=== PATIENT | female | born 1975 | race African-American/Black ===

== ENCOUNTER 2019-03-23 00:28 | Inpatient (IN) | payer MEDICAID ==
[~2019-03-23] VITALS: Ht 162.6 cm; Wt 67.1 kg
[2019-03-23] VITALS (16 sets, daily range): BP systolic 107–122; BP diastolic 60–84
[2019-03-23] MEDS ORDERED: SODIUM CHLORIDE 0.9% 1,000 ML IV ONE (01:24)
[2019-03-23 01:50] LABS: MEAN CORPUSCULAR HEMOGLOBIN 16.9 pg (28.0-32.0); MEAN CORPUSCULAR VOLUME 59.2 fL (81.0-99.0); MEAN PLATELET VOLUME 7.2 fl (7.4-10.4); RED BLOOD CELL COUNT 2.11 mill/uL (4.2-5.4); RED CELL DISTRIBUTION WIDTH 27.6 % (11.6-14.6)
[2019-03-23 01:56] LABS: HEMOGLOBIN. 3.6 g/dL (12.0-16.0)
[2019-03-23 01:57] LABS: HEMATOCRIT. 12.5 % (36.0-48.0); PLATELET 1062 x1000/uL (130-400); PROTHROMBIN TIME 10.7 sec (9.6-11.0)
[2019-03-23 02:00] LABS: CHLORIDE 106 mEq/L (98-107)
[2019-03-23 02:17] LABS: HCG SCREEN NEGATIVE
[2019-03-23 04:28] LABS: PLATELET ESTIMATE MARKEDLY INCREASED
[2019-03-23] MEDS ORDERED: ONDANSETRON HCL 4MG/2ML INJ IV PRN (07:45)
[2019-03-23] MEDS ORDERED: HYDROCODONE/ACETAMINOPHEN 10/325MG TABLET PO PRN (07:45)
[2019-03-23] MEDS ORDERED: LORAZEPAM 2MG/ML CPJ IV PRN (07:45)
[2019-03-23] MEDS ORDERED: THIAMINE HCL 100MG TABLET PO NR (08:00)
[2019-03-23] MEDS ORDERED: ACETAMINOPHEN 650MG/20.3ML UDC PO PRN (12:30)
[2019-03-23] MEDS ORDERED: DIPHENHYDRAMINE 50MG/ML VIAL IV PRN (12:30)
[2019-03-23] MEDS: FERROUS SULFATE 325MG TABLET PO SCH (12:56)
[2019-03-23 18:43] LABS: CLARITY URINE CLEAR (CLEAR); COLOR URINE YELLOW (YELLOW); KETONES URINE NEGATIVE (NEGATIVE); LEUKOCYTE ESTERASE URINE NEGATIVE (NEGATIVE); NITRITE URINE NEGATIVE (NEGATIVE); OCCULT BLOOD URINE 1+ (NEGATIVE); PROTEIN URINE NEGATIVE (NEGATIVE); SPECIFIC GRAVITY URINE 1.007 (1.005-1.030)
[2019-03-23 18:56] LABS: *AMPHETAMINES SCREEN URINE NEGATIVE (NEGATIVE); *BARBITURATES SCREEN URINE NEGATIVE (NEGATIVE); *BENZODIAZEPINES SCREEN URINE NEGATIVE (NEGATIVE)
[2019-03-23 18:57] LABS: *COCAINE SCREEN URINE PRESUMTIVE POSITIVE (NEGATIVE); METHADONE URINE SCREEN NEGATIVE (NEGATIVE); OPIATES URINE SCREEN NEGATIVE (NEGATIVE); PHENCYCLIDINE URINE SCREEN NEGATIVE (NEGATIVE)
[2019-03-23 18:58] LABS: CANNABINOID URINE SCREEN PRESUMTIVE POSITIVE (NEGATIVE)
[2019-03-24] VITALS (9 sets, daily range): BP systolic 103–120; BP diastolic 57–85
[2019-03-24 02:36] LABS: HEMATOCRIT 25.6 % (36.0-48.0); HEMOGLOBIN 8.2 g/dL (12.0-16.0)
[2019-03-24] MEDS: FERROUS SULFATE 325MG TABLET PO SCH (08:55)
[2019-03-24] MEDS ORDERED: THIAMINE HCL 100MG TABLET PO SCH (09:00)
== END 2019-03-24 14:21 | disposition home or self-care (01) | DRG 532 ==
LOC: ER 00:28 → 3WST 02:09 → ENRESERV 07:45 → CANRESERV 07:45 → EDBEDREQSVC 09:17 → ENRESERV 10:10
PROVIDERS: ADMIT Internal Medicine Nephrology; ATTEND Internal Medicine Nephrology
PROC: 30233N1 Transfusion of Nonautologous Red Blood Cells into Peripheral Vein, Percutaneous Approach (ICD-10-PCS; principal; 2019-03-23)
DX: N93.9 Abnormal uterine and vaginal bleeding, unspecified (principal); D50.0 Iron deficiency anemia secondary to blood loss (chronic)
CPT/HCPCS: 36415; 36430; 76830; 76856; 80305; 84703; 85014; 85018; 86078; 86850; 86900; 86920; 93005; 96360; 99291; J1200; J7030; J7050; P9016